=== PATIENT | male | born 1955 | race Asian ===

== ENCOUNTER 2018-09-04 14:04 | Emergency (ER) | payer BC ==
[~2018-09-04 14:04] MED LIST: ISOVUE-370 76%-LOCM 1 ML ONE
[2018-09-04 15:40] LABS: #Basophils 0.1 thou/uL (0.0-0.2); #Eosinphils 0.1 thou/uL (0.0-0.7); #Lymphocytes 1.7 thou/uL (1.20-3.40); #Monocytes 0.7 thou/uL (0.11-0.59); #Neutrophils 6.1 thou/uL (1.40-6.50); %Basophils 0.6 % (0.0-1.0); %Eosinophils 0.7 % (0.0-10.0); %Lymphocytes 19.9 % (21.0-51.0); %Neutrophils 70.7 % (42.0-75.0); Hemoglobin 15.6 g/dL (14.0-18.0); Mean Corpuscular HGB CONC 33.6 g/dL (32.0-36.0); Mean Corpuscular Volume 86.2 fL (78.0-98.0); Mean Platelet Volume 6.8 fL (7.4-10.4); Platelet Count 318 thou/uL (130-400); RBC Distribution Width 12.3 % (11.5-14.5); Red Blood Cell (RBC) Count 5.39 mill/uL (4.70-6.10); White Blood Cell (WBC) Count 8.6 thou/uL (4.8-10.8)
[2018-09-04 15:47] LABS: PTT 32.6 SEC (22.9-36.1); Prothrombin Time 12.9 SEC (12.0-14.7)
[2018-09-04 15:49] LABS: ALT (SGPT) 25 U/L (8-55); AST (SGOT) 22 U/L (5-34); Albumin 4.6 g/dL (3.4-4.8); Alkaline Phosphatase 63 U/L (40-150); Anion Gap 10 mmol/L (10-20); BUN (Urea Nitrogen) 20 mg/dL (8.4-25.7); Bilirubin, Total 0.6 mg/dL (0.2-1.2); Calc. Creatinine Clearance 0 mL/min (70-130); Calcium 10.1 mg/dL (7.8-10.44); Carbon Dioxide 31 mmol/L (23-31); Chloride 102 mmol/L (98-107); Estimated GFR-MDRD 74; Glucose 83 mg/dL (80-115); Potassium 4.2 mmol/L (3.5-5.1); Protein, Total 7.6 g/dL (5.8-8.1); Sodium 139 mmol/L (136-145)
[2018-09-04 15:51] LABS: Bilirubin Negative (Negative); Blood, Urine Negative (Negative); Clarity CLEAR (Clear); Glucose, Urine (Dipstick) Negative (Negative); Leukocyte Negative (Negative); Nitrite Negative (Negative); Protein, Urine (Dipstick) Negative (Neg-Trace); Specific Gravity, Urine 1.015 (1.002-1.036); Urobilinogen 0.2 mg/dL (0.2-1.0); pH, Urine 6.5 (5.0-9.0)
--- NOTE | 2018-09-04 18:02 | CT ---
CT ABDOMEN AND PELVIS WITH IV CONTRAST: 09/04/18 HISTORY: Hematuria. FINDINGS: Lung bases are clear. The liver, spleen, kidneys, adrenal glands, and pancreas have a normal CT appea rasta. Small hyperdense stones within the gallbladder lumen. Degenerative changes lumbar spine. Urinary bladder has normal appearance. Prostate gland upper limits of normal in size. Phleboliths are apparent within the pelvis. There are subtle circumferential wall thickening and adjacent fat stranding involving the rectum and lower sigmoid colon. No adjacent free fluid. IMPRESSION: Mildly inflamed appearance of the lower sigmoid colon and rectum without evidence of complication. Cl inical correlation regarding other signs and symptoms of lower proctocolitis is required. Please cons ider endoscopic evaluation. No abnormalities are demonstrated to explain hematuria. Cholelithiasis. POS: [facility]
== END 2018-09-04 18:10 | disposition home or self-care (01) ==
LOC: ERS 14:04
DX: R31.9 Hematuria, unspecified (principal); N40.1 Benign prostatic hyperplasia with lower urinary tract symptoms; E78.5 Hyperlipidemia, unspecified; Z79.899 Other long term (current) drug therapy
CPT/HCPCS: 36415; 74177; 80053; 81003; 85025; 85610; 85730; Q9966